=== PATIENT | female | born 1975 | race Caucasian/White ===

== ENCOUNTER 2020-11-06 23:25 | Emergency (ER) | payer BC ==
[2020-11-07] MEDS ORDERED: SODIUM CHLORIDE 0.9% 500 ML INFUS.BAG IV ONE (00:21)
[2020-11-07] MEDS ORDERED: ACETAMINOPHEN 1000 MG/100 ML VIAL (NON FORMULARY) IVPB ONE (00:21)
[2020-11-07 01:11] VITALS: BMI 24.5
[2020-11-07 01:38] LABS: BASO % 0.4 % (0-2.0); EOS % 2.1 % (0-4.5); LYMPH % 24.8 % (8-40); MCH 26.3 pg (25.7-33.7); MCHC 33.4 g/dl (32.0-36.0); MEAN CELL VOLUME 78.6 fl (80-96); MEAN PLT VOLUME 8.7 fl (7.5-11.1); MONO % 4.6 % (3.8-10.2); NEUT % 68.1 % (42.8-82.8); PLATELET COUNT 220 10^3/uL (134-434); RBC 4.57 M/mm3 (3.60-5.2); RDW 14.8 % (11.6-15.6); WHITE BLOOD COUNT 9.8 K/mm3 (4.0-10.0)
[2020-11-07 01:42] VITALS: TEMP 97.9
[2020-11-07 01:50] LABS: CHLORIDE 104 mmol/L (98-107); SODIUM 138 mmol/L (136-145)
[2020-11-07 01:52] LABS: CALCIUM 9.1 mg/dL (8.5-10.1)
[2020-11-07 01:53] LABS: ANION GAP 8 MMOL/L (8-16); CO2 27 mmol/L (21-32); GLUCOSE,RANDOM 141 mg/dL (74-106)
[2020-11-07 01:56] LABS: CREATININE 1.1 mg/dL (0.55-1.3); SGOT/AST 24 U/L (15-37); SGPT/ALT 36 U/L (13-61)
[2020-11-07 01:58] LABS: BILIRUBIN,TOTAL 0.2 mg/dL (0.2-1); TOT PROT 8.1 g/dl (6.4-8.2)
[2020-11-07 01:59] LABS: ALK PHOS 88 U/L (45-117)
== END 2020-11-07 04:54 | disposition home or self-care (01) ==
LOC: JER 23:25
PROC: 3E033GC Introduction of Other Therapeutic Substance into Peripheral Vein, Percutaneous Approach (ICD-10-PCS; principal; 2020-11-06)
DX: S09.90XA Unspecified injury of head, initial encounter (principal); W19.XXXA Unspecified fall, initial encounter
CPT/HCPCS: 36415; 70450-TC; 71046-TC-FY; 72125-TC; 80053; 82550; 83735; 84484; 84703; 85025; 93005; 93010; 99285-25; J0131